=== PATIENT | male | born 1970 | race Caucasian/White ===

== ENCOUNTER 2023-08-17 00:01 | Observation (INO) ==
[2023-08-17] MEDS ORDERED: OPTIRAY 320 125ml IV ONE (00:36)
[2023-08-17 00:43] LABS: Basophils # (auto) 0.04 K/uL (0.00-0.20); Basophils % (auto) 0.4 %; Eosinophils # (auto) 0.19 K/uL (0.00-0.50); Eosinophils % (auto) 2.1 %; Hematocrit (blood only) 44.6 % (42.0-52.0); Immature Granulocytes # (auto) 0.02 K/uL (0.01-0.20); Immature Granulocytes % (auto) 0.2 %; Lymphocytes % (auto) 35.1 %; Mean Corpuscular Hemoglobin 29.5 pg (25.0-34.0); Mean Corpuscular Hgb Conc 33.6 g/dL (32.0-36.0); Mean Corpuscular Volume 87.8 fL (80.0-100.0); Mean Platelet Volume 9.4 fL (9.4-12.4); Monocytes # (auto) 0.87 K/uL (0.11-0.59); Monocytes % (auto) 9.5 %; Neutrophils # (auto) 4.79 K/uL (1.40-6.50); Neutrophils % (auto) 52.7 %; Platelet Count 291 K/uL (130-400); RDW Coefficient of Variation 12.6 % (11.5-14.5); RDW Standard Deviation 40.7 fL (36.4-46.3); Red Blood Count 5.08 M/uL (4.70-6.10); White Blood Count 9.11 K/ul (4.8-10.8)
[2023-08-17] MEDS ORDERED: ACETAMINOPHEN 1,000 MG/100 ML VIAL IV STA (00:44)
--- NOTE | 2023-08-17 00:44 | Emergency Department Note ---
History of Present Illness General Chief complaint: Chest Pain Stated complaint: CHEST PAIN Time Seen by Provider: 08/17/23 00:11 History of Present Illness Maximum Pain Intensity: 1 This 52-year-old gentleman presents the ER complaining of chest pain for the past day. Sitting up makes it better and laying down makes it worse. Patient denies fever, chills, cough, congestion, flulike illness, abdominal pain, leg pain or swelling. He states he is healthy with no active medical problems. He does not smoke. He has not seen a doctor in a while though. Home Medications Medication Instructions Recorded Confirmed Type ascorbic acid (vitamin C) 250 mg 500 mg PO DAILY 08/17/23 08/17/23 History chewable tablet (Vitamin C) multivitamin 1 tab PO DAILY 08/17/23 08/17/23 History Allergies Allergy/AdvReac Type Severity Reaction Status Date / Time No Known Allergies Allergy Verified 08/17/23 01:25 Past Med/Surg History Social History Smoking Status: Never smoker Hx Alcohol Use: No Hx Substance Use: No Preferred Language: Togolese Communication Ability: Effective Golf Course Patroller Required: No Beliefs That Will Affect Care: None Current Living Situation: Alone Other Information That Helps Us Care for You: No Feels Safe at Home: Yes Safety Concerns: Feels Safe At This Time Assistive Devices: None Review of Systems A total of 10 systems reviewed and were otherwise negative Physical Exam Vital Signs Vital Signs - 24 hr 08/17/23 00:06 08/17/23 00:15 08/17/23 00:30 Temperature 36.6 C Temperature Source Temporal Artery Scan Pulse Rate 82 81 Pulse Rate [Right] Pulse Rhythm Regular Pulse Strength Normal Respiratory Rate 20 Respiratory Effort / Characteristics Non-Labored Spontaneous Respiratory Depth Normal Blood Pressure 158/97 H Blood Pressure [Right Arm] Blood Pressure Mean 117 Blood Pressure Mean [Right Arm] Blood Pressure Position Sitting Blood Pressure Position [Right Arm] Pulse Oximetry 96 99 Oxygen Delivery Method Room Air Room Air Sepsis Recent Fever Within 48 Hours No Sepsis New/Unexplained Change in Mental Status N/A Sepsis Action Taken by Nursing No Action Required 08/17/23 01:37 08/17/23 02:12 Temperature 36.7 C Temperature Source Oral Pulse Rate Pulse Rate [Right] 66 74 Pulse Rhythm Pulse Strength Respiratory Rate 16 16 Respiratory Effort / Characteristics Non-Labored Spontaneous Non-Labored Spontaneous Respiratory Depth Normal Normal Blood Pressure Blood Pressure [Right Arm] 140/87 140/87 Blood Pressure Mean Blood Pressure Mean [Right Arm] 104 104 Blood Pressure Position Blood Pressure Position [Right Arm] Sitting Pulse Oximetry 96 96 Oxygen Delivery Method Room Air Room Air Sepsis Recent Fever Within 48 Hours Sepsis New/Unexplained Change in Mental Status Sepsis Action Taken by Nursing VITALS: Vitals are noted on the nurse's note and reviewed by myself. Vital signs stable. GENERAL: Pleasant patient, in no acute distress, nondiaphoretic, well-developed well-nourished. SKIN: Capillary reflex less than 2 seconds. HEENT: Normocephalic. PERRLA. EOMI. Nares patent. Mucous membranes moist. Neck is supple without nuchal rigidity. HEART: Regular rate and rhythm; chest nontender to palpation LUNGS: Clear to auscultation bilaterally without wheezes, rales or rhonchi. No retractions or accessory muscle use. ABDOMEN: Positive bowel sounds x 4. Normal tympanic percussion. Soft, nontender, without masses or organomegaly. Jasso sign negative. No guarding or rebound tenderness. MUSCULOSKELETAL: No gross musculoskeletal defects. NEURO: Patient was alert and oriented to person place and time. No focal neurological deficits. Course Administered Medications Discontinued Medications Furosemide (Furosemide 40 Mg/4 Ml Vial) 40 mg IV ONE ONE Stop: 08/17/23 01:29 Last Admin: 08/17/23 01:50 Dose: 40 mg Documented By: KISHAN Acetaminophen (Ofirmev) 1,000 mg in 100 mls @ 400 mls/hr IV NOW STA Stop: 08/17/23 00:58 Last Infusion: 08/17/23 01:15 Dose: Infused Documented By: Admin: 08/17/23 00:47 Dose: 400 mls/hr Documented By: KISHAN Ioversol (Optiray 320 125ml) 125 ml IV ONCE ONE Stop: 08/17/23 00:37 Last Admin: 08/17/23 00:37 Dose: 117 ml Documented By: GALLO Medical Decision Making Medical Records Attestation: I reviewed the patient's medical records. Home Medications Current Medication List: was personally reviewed by me Laboratory Data Attestation: I reviewed the patient's lab results. 08/17/23 00:20 08/17/23 00:20 Lab Results 08/17/23 Range/Units 00:20 WBC 9.11 (4.8-10.8) K/ul RBC 5.08 (4.70-6.10) M/uL Hgb 15.0 (14.0-18.0) g/dl Hct 44.6 (42.0-52.0) % MCV 87.8 (80.0-100.0) fL MCH 29.5 (25.0-34.0) pg MCHC 33.6 (32.0-36.0) g/dL RDW Std Deviation 40.7 (36.4-46.3) fL RDW Coeff of Alyse 12.6 (11.5-14.5) % Plt Count 291 (130-400) K/uL MPV 9.4 (9.4-12.4) fL Immature Gran % (Auto) 0.2 % Neut % (Auto) 52.7 % Lymph % (Auto) 35.1 % Jenkins % (Auto) 9.5 % Eos % (Auto) 2.1 % Baso % (Auto) 0.4 % Neut # (Auto) 4.79 (1.40-6.50) K/uL Lymph # (Auto) 3.20 (1.20-3.40) K/uL Jenkins # (Auto) 0.87 H (0.11-0.59) K/uL Eos # (Auto) 0.19 (0.00-0.50) K/uL Baso # (Auto) 0.04 (0.00-0.20) K/uL Immature Gran # (Auto) 0.02 (0.01-0.20) K/uL PT 10.3 (9.0-12.0) Seconds INR 0.9 (0.9-1.1) APTT 28 (21-31) Seconds PTT Ratio 1.0 Sodium 140 (136-145) mmol/L Potassium 3.8 (3.5-5.1) mmol/L Chloride 108 H (98-107) mmol/L Carbon Dioxide 26 (21-32) mmol/L Anion Gap 6 (3-11) BUN 16 (6-23) mg/dl Creatinine 1.08 (0.6-1.4) mg/dl Est Cr Clr Drug Dosing 99.4 ml/min Est GFR ( Amer) 91.6 ml/min Est GFR (Non-Af Amer) 79.0 ml/min BUN/Creatinine Ratio 14.8 (10-20) Glucose 116 H (70-99(Fasting)) mg/dl Calcium 9.5 (8.6-10.3) mg/dl Magnesium 2.0 (1.7-2.4) mg/dl Total Bilirubin 0.4 (0.2-1.0) mg/dl AST 14 (13-39) U/L ALT 17 (7-52) U/L Alkaline Phosphatase 65 (34-104) U/L Troponin I High Sens 5.1 (0-20) pg/ml B-Natriuretic Peptide 11 (0-100) pg/ml Total Protein 7.0 (6.0-8.3) gm/dl Albumin 4.2 (3.4-5.0) gm/dl Globulin 2.8 (2.5-4.0) gm/dl Albumin/Globulin Ratio 1.5 (0.9-2) TSH 4.800 H (0.300-4.500) uIu/ml Free T4 0.79 (0.61-1.60) ng/dl Imaging Data Attestation: I personally reviewed and interpreted this imaging study as follows: Radiologist's Impression: Chest CTA 08/17/23 00:27 Exam(s): CTA CHEST IV Amt: 117 ml optiray 320 EXAM: CT Angiography Chest With Intravenous Contrast CLINICAL HISTORY: Pulmonary embolus. TECHNIQUE: Axial computed tomographic angiography images of the chest with intravenous contrast. CTDI is 14.25 mGy and DLP is 7.12 mGy-cm. Automated exposure control was utilized for the study. A dose lowering technique was utilized adhering to the principles of ALARA. MIP reconstructed images were created and reviewed. COMPARISON: Chest radiograph 08/17/2023 FINDINGS: Pulmonary arteries: Unremarkable. No pulmonary embolus. Aorta: No acute findings. No thoracic aortic aneurysm. Lungs: Interseptal thickening is concerning for pulmonary edema. No mass. Pleural space: Unremarkable. No significant effusion. No pneumothorax. Heart: Unremarkable. No cardiomegaly. No significant pericardial effusion. No evidence of RV dysfunction. Bones/joints: There are degenerative changes of the spine. No acute fracture. No dislocation. Soft tissues: Unremarkable. Lymph nodes: Unremarkable. No enlarged lymph nodes. IMPRESSION: 1. No pulmonary embolus. 2. Interseptal thickening is concerning for pulmonary edema. Electronically signed by: Crystal Sheth MD 08/17/23 01:14 AM [facility] Narrative Prior records/ancillary studies reviewed. Triage Nursing notes reviewed. Additional history obtained from nursing. The patient's history was concerning for chest pain. Differential diagnosis: Etiologies such as cardiac ischemia, aortic dissection, pulmonary embolism, pneumonia, pneumothorax, musculoskeletal, infections, pericarditis, myocarditis, esophageal rupture, gastrointestinal, as well as others were entertained. Physical examination: As above. ER treatment provided: An order was placed for continuous cardiac monitoring. The monitor shows a rate of 60-100 with a sinus rhythm per my interpretation. Tylenol was ordered Lasix was ordered On reassessment the patient felt better. Diagnostic interpretation by me: The electrocardiogram was ordered for chest pain EKG: Normal sinus, left anterior fascicular block, no acute ST-T wave changes, rate of 74. Impression normal sinus rhythm with a left anterior fascicular block independently interpreted by myself The labs Independently Interpreted by myself revealed negative troponin. Stable H&H. Minimally elevated TSH Imaging studies: Chest x-ray with no acute consolidation, pneumothorax or free air per my independent or potation CT is concerning for pulmonary edema per radiology HEART SCORE: Hx: high/mod/low suspicion: 0 ECG: ST depression/nonspecific changes/normal: 0 Age: Greater than 65/45-64/less than 45: 1 Risk factors: (Hypertension, hyperlipidemia, diabetes, coronary disease, tobacco use, cocaine use): 0 Troponin: Greater than 2 times normal limits/1-2 times normal limits/normal: 0 Total: 1 Consultation: A consultation was placed with the hospitalist. The case was discussed and diagnostics were reviewed. The patient was evaluated in the ER for further treatment. Exam and history consistent with chest pain with concerns for new onset pulmonary edema. Patient was given Lasix. Medicine was consulted and the case was discussed. He will be admitted to the medical service for further evaluation and treatment. By the evaluation outlined above emergent etiologies such as aortic dissection, pulmonary embolism, pneumonia, pneumothorax, infections, pericarditis, myocarditis, gastrointestinal, as well as others were deemed relatively unlikely. The pt informed about the findings as listed above. All questions were answered and pleased with the treatment. The chart was completed utilizing Dragon Speech voice recognition software. Grammatical errors, random word insertions, pronoun errors, and incomplete sentences are an occassional consequence of this system due to software limitations, ambient noise, and hardware issues. Any formal questions or concerns about the content, text, or information contained within the body of this dictation should be directly addressed to the physician assistant shift supervisor for clarification. Impression & Plan Chest pain, Pulmonary edema Discharge Plan Visit Data Chief Complaint: Chest Pain Stated Complaint: CHEST PAIN ED Provider: Leslee Aguilar ED Midlevel Provider: Madhavi Bal Discharge Problem: Chest pain, Pulmonary edema Patient Disposition: Admitted As Inpatient Condition: Good Forms Stand Alone Forms: [employer] Prescriptions Prescriptions: No Action multivitamin Tablet 1 tab PO DAILY ascorbic acid (vitamin C) [Vitamin C] 250 mg Tablet,Chewable 500 mg PO DAILY Referrals Referrals: PCP,NO [Physician] - Discharge Problem: Chest pain Qualifiers: Chest pain type: unspecified Qualified Code(s): R07.9 - Chest pain, unspecified
[2023-08-17 01:03] LABS: Albumin Globulin Ratio 1.5 (0.9-2); Albumin Level 4.2 gm/dl (3.4-5.0); BUN Creatinine Ratio 14.8 (10-20); Bilirubin,Total 0.4 mg/dl (0.2-1.0); Calcium 9.5 mg/dl (8.6-10.3); Creatinine Clr Calc Pharmacy 99.4 ml/min; Est GFR (African American) 91.6 ml/min; Globulin 2.8 gm/dl (2.5-4.0); Potassium 3.8 mmol/L (3.5-5.1)
[2023-08-17 01:09] LABS: Troponin I High Sensitivity 5.1 pg/ml (0-20)
--- NOTE | 2023-08-17 01:15 | CT Scan Report ---
Exam(s): CTA CHEST IV Amt: 117 ml optiray 320 EXAM: CT Angiography Chest With Intravenous Contrast CLINICAL HISTORY: Pulmonary embolus. TECHNIQUE: Axial computed tomographic angiography images of the chest with intravenous contrast. CTDI is 14.25 mGy and DLP is 7.12 mGy-cm. Automated exposure control was utilized for the study. A dose lowering technique was utilized adhering to the principles of ALARA. MIP reconstructed images were created and reviewed. COMPARISON: Chest radiograph 08/17/2023 FINDINGS: Pulmonary arteries: Unremarkable. No pulmonary embolus. Aorta: No acute findings. No thoracic aortic aneurysm. Lungs: Interseptal thickening is concerning for pulmonary edema. No mass. Pleural space: Unremarkable. No significant effusion. No pneumothorax. Heart: Unremarkable. No cardiomegaly. No significant pericardial effusion. No evidence of RV dysfunction. Bones/joints: There are degenerative changes of the spine. No acute fracture. No dislocation. Soft tissues: Unremarkable. Lymph nodes: Unremarkable. No enlarged lymph nodes. IMPRESSION: 1. No pulmonary embolus. 2. Interseptal thickening is concerning for pulmonary edema. Electronically signed by: Crystal Sheth MD 08/17/23 01:14 AM
[2023-08-17 01:18] LABS: Thyroid Stimulating Hormone 4.8 uIu/ml (0.300-4.500)
[2023-08-17 01:23] LABS: INR 0.9 (0.9-1.1); Partial Thromboplastin Time 28 Seconds (21-31); Prothrombin Time 10.3 Seconds (9.0-12.0)
[2023-08-17] MEDS ORDERED: FUROSEMIDE 40 MG/4 ML VIAL IV ONE (01:28)
[2023-08-17 01:54] LABS: T4 Free Thyroxine 0.79 ng/dl (0.61-1.60)
--- NOTE | 2023-08-17 02:02 | History & Physical Report ---
Date of Service August 17, 2023 Assessment & Plan (1) Pulmonary edema: (2) Chest pain: (3) Orthopnea: Plan Pt is a 52yoM with no significant PMHx presenting with chest pain and orthopnea. Chest Pain Orthopnea Pulmonary Edema States that he was having episodes of chest pressure, needing recliner to help with breathing trop x1 wnl, trend to peak EKG with NSR, possible L anterior fascicular block Chest CTA noting pulmonary edema Echo pending Biofire pending for recent URI symptoms IV Lasix 40mg given in the ED Cardiology consult-appreciate recs Continue other home meds as ordered CODE STATUS: Full code DVT prophylaxis: Lovenox Diet: HH Dispo: Med/Surg with tele History of Present Illness Chief Complaint: SOB Primary Care Provider: Andrew Lomas MD Pt is a 52yoM with no significant PMHx presenting with chest pain and orthopnea. States that his symptoms started last night, felt "funky". States he felt like his heart was pounding out of his chest and could not get comfortable in bed. Did not feel well. Tried putting cold water on himself and it did not help. Went back to lay down and symptoms got worse. Eventually went down to his recliner/love seat and noted that it was worse whenever he was laying all the way down. States that he had a runny nose and "head cold" about 3 weeks ago. 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 Decided to come in for further evaluation when the symptoms kept returning. Allergies Allergy/AdvReac Type Severity Reaction Status Date / Time No Known Allergies Allergy Verified 08/17/23 01:25 Home Medications Medication Instructions Recorded Confirmed Type ascorbic acid (vitamin C) 250 mg 500 mg PO DAILY 08/17/23 08/17/23 History chewable tablet (Vitamin C) multivitamin 1 tab PO DAILY 08/17/23 08/17/23 History Past Med/Surg History Social History Smoking Status: Never smoker Hx Alcohol Use: No Hx Substance Use: No Preferred Language: American Communication Ability: Effective Financial Services Associate Required: No Beliefs That Will Affect Care: None Current Living Situation: Alone Other Information That Helps Us Care for You: No Feels Safe at Home: Yes Safety Concerns: Feels Safe At This Time Assistive Devices: None Review of Systems Review of Systems: All systems reviewed & are unremarkable except as noted in HPI & below Physical Exam Physical Exam: General: Alert, oriented. No acute distress Skin: No noted rashes or bruises Psych: Appropriate mood and affect Neuro: No gross deficits HEENT: NC/AT Chest: Nontender to palpation. CV: RRR Resp: Breath sounds clear bilaterally, no increased effort of breathing. Abdomen: Soft, nontender, nondistended. Extremities: No edema in lower extremities bilaterally. Results & Data Results & Data Vital Signs (Past 12 Hours) Vital Signs Temp Pulse Pulse Resp BP BP Pulse Ox 08/17/23 01:37 66 16 140/87 96 08/17/23 00:30 99 08/17/23 00:15 81 08/17/23 00:06 36.6 C 82 20 158/97 H 96 O2 Del Method 08/17/23 01:37 Room Air 08/17/23 00:30 Room Air 08/17/23 00:15 08/17/23 00:06 Room Air Diagnostic Findings Chest CTA 08/17/23 00:27 Exam(s): CTA CHEST IV Amt: 117 ml optiray 320 EXAM: CT Angiography Chest With Intravenous Contrast CLINICAL HISTORY: Pulmonary embolus. TECHNIQUE: Axial computed tomographic angiography images of the chest with intravenous contrast. CTDI is 14.25 mGy and DLP is 7.12 mGy-cm. Automated exposure control was utilized for the study. A dose lowering technique was utilized adhering to the principles of ALARA. MIP reconstructed images were created and reviewed. COMPARISON: Chest radiograph 08/17/2023 FINDINGS: Pulmonary arteries: Unremarkable. No pulmonary embolus. Aorta: No acute findings. No thoracic aortic aneurysm. Lungs: Interseptal thickening is concerning for pulmonary edema. No mass. Pleural space: Unremarkable. No significant effusion. No pneumothorax. Heart: Unremarkable. No cardiomegaly. No significant pericardial effusion. No evidence of RV dysfunction. Bones/joints: There are degenerative changes of the spine. No acute fracture. No dislocation. Soft tissues: Unremarkable. Lymph nodes: Unremarkable. No enlarged lymph nodes. IMPRESSION: 1. No pulmonary embolus. 2. Interseptal thickening is concerning for pulmonary edema. Electronically signed by: Crystal Sheth MD 08/17/23 01:14 AM (2) Chest pain Chest pain type: unspecified Qualified Code(s): R07.9 - Chest pain, unspecified
[2023-08-17 06:44] LABS: iSTAT Creatinine 1.1 mg/dl (0.6-1.3); iSTAT Ionized Calcium 1.26 mmol/l (1.12-1.32); iSTAT Potassium 3.7 mmol/L (3.3-5.0)
--- NOTE | 2023-08-17 07:05 | XRay Report ---
SINGLE VIEW CHEST CLINICAL HISTORY: Atypical chest pain. FINDINGS: 2 AP, portable, upright chest radiographs are obtained. No prior studies are available for comparison at the time of dictation. The heart is mildly enlarged. The pulmonary vasculature is conge sted. The lungs and pleural spaces are clear. No pneumothorax is seen. The bony thorax is grossly int act. IMPRESSION: Mild cardiomegaly with no active disease in the chest. ACT 112: Negative or not required by law. Electronically signed by: Jim Paulino M.D. 08/17/2023 7:03 AM
[2023-08-17] MEDS ORDERED: ENOXAPARIN INJ 40 MG/0.4 ML SYR SQ SCH (09:00)
[2023-08-17] MEDS ORDERED: ASCORBIC ACID 500 MG TAB PO SCH (09:00)
[2023-08-17] MEDS ORDERED: FUROSEMIDE 40 MG/4 ML VIAL IV SCH (09:00)
[2023-08-17] MEDS ORDERED: MULTIVITAMIN TAB PO SCH (09:00)
--- NOTE | 2023-08-17 12:43 | Electrocardiogram Report ---
Test Reason : Blood Pressure : / mmHG Vent. Rate : 074 BPM Atrial Rate : 074 BPM P-R Int : 182 ms QRS Dur : 076 ms QT Int : 368 ms P-R-T Axes : 023 -54 065 degrees QTc Int : 408 ms Normal sinus rhythm Left anterior fascicular block Nonspecific T wave abnormality Abnormal ECG No previous ECGs available Confirmed by Kristopher Leyva ([id number]) on 08/17/2023 12:42:27 PM Referred By: REFERRED SELF Confirmed By:Kristopher Leyva
--- NOTE | 2023-08-17 15:20 | Discharge Summary ---
Discharge Summary Date of Service August 17, 2023 Notes For Next Care Provider DX: CHEST PAIN, ORTHOPNEA POSS RELATED TO RECENT URI ADMIT DATE: 08/17/23 DC DATE: 08/17/23 Please undergo outpatient stress echocardiogram and event monitor with followup with Cardiology Medication Changes From Visit Please see med rec Admission HPI Per Admitting Provider Pt is a 52yoM with no significant PMHx presenting with chest pain and orthopnea. States that his symptoms started last night, felt "funky". States he felt like his heart was pounding out of his chest and could not get comfortable in bed. Did not feel well. Tried putting cold water on himself and it did not help. Went back to lay down and symptoms got worse. Eventually went down to his recliner/love seat and noted that it was worse whenever he was laying all the way down. States that he had a runny nose and "head cold" about 3 weeks ago. 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 Decided to come in for further evaluation when the symptoms kept returning. Admission Exam Per Admitting Provider General: Alert, oriented. No acute distress Skin: No noted rashes or bruises Psych: Appropriate mood and affect Neuro: No gross deficits HEENT: NC/AT Chest: Nontender to palpation. CV: RRR Resp: Breath sounds clear bilaterally, no increased effort of breathing. Abdomen: Soft, nontender, nondistended. Extremities: No edema in lower extremities bilaterally. Principal Dx & Hospital Course #1 = Principal Diagnosis (1) Chest pain: (2) Pulmonary edema: (3) Orthopnea: Plan 52 yo man presented with chest pain and orthopnea reporting using a recliner to sleep to help with his breathing. He had no known history of hypertension, CAD, heart failure, or diabetes. He reported recent URI symptoms but declined viral screening. A chest CT angiogram revealed pulmonary edema. He was treated with a dose of intravenous furosemide in the ER and was admitted to medicine. He was seen by cardiology for his intermittent chest discomfort which was positional in nature. EKG was without acute findings to suggest pericarditis. No pericardial effusion on CAT scan or echocardiogram with LV systolic function preserved. No signs of congestive heart failure by physical examination and review x-ray. No symptoms were present to suggest exertional angina. Echocardiogram did demonstrate left ventricular hypertrophy raising the question if there was prior unobserved hypertension versus hypertrophic disease. As patient wished to be discharged and was stable, discharge recommendations include outpatient stress echocardiogram and event monitor with cardiology follow-up. Blood pressure should be followed and treated as indicated as this and his noted family history of CAD are cardiovascular risk factors. His symptoms were thought possibly 2/2 residual from recent URI, but this was unable to bee confirmed. Updated Medication List Medication Instructions Recorded Confirmed Type ascorbic acid (vitamin C) 250 mg 500 mg PO DAILY 08/17/23 08/17/23 History chewable tablet (Vitamin C) multivitamin 1 tab PO DAILY 08/17/23 08/17/23 History Hospital Stay Data Consultations 08/17/23 02:02 ED Decision to Admit Stat 08/17/23 02:35 Consult Cardiology Routine Diagnostic Imagining Performed 08/17/23 00:27 CT angio chest PE protocol Stat Pending Results Patient Have Any Pending Studies at Discharge: No Discharge Instructions Given to Patient (Per Discharging Provider) You were found to have no evidence of a heart attack, pericarditis or heart failure. A CT scan ("cat" scan) of the chest showed no evidence of blood clot in your lung. We discussed that your food intake was less likely a cause for your symptoms. With no further symptoms and these issues ruled out, you are being sent home. Further workup is indicated, however. The ultrasound of your heart revealed an enlargement in the muscle called "left ventricular hypertrophy." It is not clear the cause for this, but elevated blood pressure is one of the more common reasons to see this. It is also possible that an upper respiratory virus may be the culprit of your symptoms. As the test for this was declined, this was not able to be clarified, but you may want to at least consider a home covid test, as covid-19 can be responsible for symptoms like this at times. Please followup with your primary care provide rin 1 week to ensure you are still doing well since returning home. You will require an outpatient stress test to make sure your heart is performing well under stress. Your primary care provider can order this for you on followup. Please also follow up with [facility] with respect to working up this LVH issue. Please try to see they in the next few weeks. It was a pleasure taking care of you! Please call if you have any questions or problems. You can reach a [facility] hospitalist on duty at [facility] 24 hours a day by calling [phone]. Take care of yourself. DO [facility] Total Time Total Time Spent Total Time Spent (In Minutes): 60
--- NOTE | 2023-08-17 15:51 | Electrocardiogram Report ---
Test Reason : Blood Pressure : / mmHG Vent. Rate : 086 BPM Atrial Rate : 086 BPM P-R Int : 174 ms QRS Dur : 076 ms QT Int : 356 ms P-R-T Axes : 032 -56 074 degrees QTc Int : 426 ms Normal sinus rhythm Left anterior fascicular block Poor R wave progression, consider anterior HI vs. lead placement vs. LVH Abnormal ECG When compared with ECG of 17-AUG-2023 00:12, No significant change was found Confirmed by Kristopher Leyva ([id number]) on 08/17/2023 3:51:38 PM Referred By: REFERRED SELF Confirmed By:Kristopher Leyva
--- NOTE | 2023-08-17 16:04 | Cardiology Consultation ---
Date of Consultation August 17, 2023 Assessment & Plan (1) Chest pain: Plan 52-year-old male presents with symptoms of intermittent chest discomfort positional nature. EKG without acute findings to suggest pericarditis. No pericardial effusion on CAT scan or echocardiogram LV systolic function preserved No signs of congestive heart failure by physical examination and review x-ray Treated with IV furosemide due to possible findings on CAT scan. Question residual from recent URI, patient declines viral screen Recommendations: Patient with cardiovascular risk factors of possible untreated hypertension, familial history of coronary disease. No symptoms suggest exertional angina. Echocardiogram does demonstrate left ventricular hypertrophy question prior unobserved hypertension versus hypertrophic disease Patient wishes to be discharged. Would recommend outpatient stress echocardiogram, event monitor with cardiology follow-up Blood pressure should be followed and treated as indicated History of Present Illness Reason for Consultation: Positional chest pain Requesting Physician: Dr. Silvestre Attending Physician: Maris Silvestre, History of Present Illness Patient is a 52-year-old male referred for evaluation of symptoms of chest pain and pressure. Patient noted intermittent pain in the mid chest and left shoulder last evening worse with positional changes lying flat and improved sitting up. [place] heart pounding occasionally but no sustained tachypalpitations syncope or near syncope. No exertional relationship otherwise. Notes recent URI recently but no cough fevers or chills. No bleeding difficulties. No melena medic easier. No edema. Denies prior history of hypertension diabetes mellitus or hyperlipidemia. Appetite and weight are stable Physically active on job and about home without specific limitations. Family history positive for coronary disease in father Initial ER evaluation included EKG with left axis deviation, borderline left intrafascicular block Normal troponin Normal BNP Chest x-ray and CAT scan possible increased interstitial markings. Treated with IV Lasix Currently asymptomatic without complaint anxious to be discharged Echocardiogram demonstrates mild to moderate left ventricular hypertrophy with preserved wall motion. No valvular disease, no pericardial effusion Allergies Allergy/AdvReac Type Severity Reaction Status Date / Time No Known Allergies Allergy Verified 08/17/23 01:25 Home Medications Medication Instructions Recorded Confirmed Type ascorbic acid (vitamin C) 250 mg 500 mg PO DAILY 08/17/23 08/17/23 History chewable tablet (Vitamin C) multivitamin 1 tab PO DAILY 08/17/23 08/17/23 History Patient History Social History Smoking Status: Never smoker Hx Alcohol Use: No Hx Substance Use: No Preferred Language: Indonesian Communication Ability: Effective Client Manager Large Law Required: No Beliefs That Will Affect Care: None Current Living Situation: Alone Other Information That Helps Us Care for You: No Feels Safe at Home: Yes Safety Concerns: Feels Safe At This Time Assistive Devices: None Review of Systems Review of Systems: All systems reviewed & are unremarkable except as noted in HPI & below Results & Data Vital Signs (Past 12 Hours) Vital Signs Temp Pulse Pulse Resp BP Pulse Ox 08/17/23 15:42 36.7 C 91 H 18 141/93 H 96 08/17/23 07:23 75 Laboratory Results Laboratory Results - last 24 hr 08/17/23 08/17/23 08/17/23 00:20 00:28 03:15 WBC 9.11 RBC 5.08 Hgb 15.0 POC Hgb 15.0 Hct 44.6 POC Hct 44 MCV 87.8 MCH 29.5 MCHC 33.6 RDW Std Deviation 40.7 RDW Coeff of Alyse 12.6 Plt Count 291 MPV 9.4 Immature Gran % (Auto) 0.2 Neut % (Auto) 52.7 Lymph % (Auto) 35.1 [place] % (Auto) 9.5 Eos % (Auto) 2.1 Baso % (Auto) 0.4 Neut # (Auto) 4.79 Lymph # (Auto) 3.20 [place] # (Auto) 0.87 H Eos # (Auto) 0.19 Baso # (Auto) 0.04 Immature Gran # (Auto) 0.02 PT 10.3 INR 0.9 APTT 28 PTT Ratio 1.0 POC Sodium 142 Sodium 140 POC Potassium 3.7 Potassium 3.8 POC Chloride 107 Chloride 108 H Carbon Dioxide 26 POC Total CO2 24 Anion Gap 6 POC Anion Gap 16.0 POC BUN 14 BUN 16 Creatinine 1.08 POC Creatinine 1.1 Est Cr Clr Drug Dosing 99.4 Est GFR ( Amer) 91.6 Est GFR (Non-Af Amer) 79.0 BUN/Creatinine Ratio 14.8 Glucose 116 H POC Glucose (other) 117 H Calcium 9.5 POC Ioniz Calcium Susan 1.26 Magnesium 2.0 Total Bilirubin 0.4 AST 14 ALT 17 Alkaline Phosphatase 65 Troponin I High Sens 5.1 4.1 B-Natriuretic Peptide 11 Total Protein 7.0 Albumin 4.2 Globulin 2.8 Albumin/Globulin Ratio 1.5 TSH 4.800 H Free T4 0.79 (1) Chest pain Chest pain type: unspecified Qualified Code(s): R07.9 - Chest pain, unspecified
== END 2023-08-17 15:42 | disposition home or self-care (01) | DRG 189 ==
LOC: ED 00:01 → EDINP 01:59 → INTOOBSV 01:59 → EDINP 02:35